=== PATIENT | female | born 1990 | race Caucasian/White ===

== ENCOUNTER 2016-10-11 06:16 | Outpatient (CLI) | payer BC ==
[~2016-10-11] VITALS: Ht 157.5 cm; Wt 66.2 kg
[2016-10-11] MEDS ORDERED: PNV91TAB3 PO (10:30)
[2016-10-12] MEDS ORDERED: SCOP1PAT TD (07:30)
[2016-10-12] MEDS ORDERED: HYDR-3812 PO (08:22)
[2016-10-12] MEDS ORDERED: IBUP-1773 PO (08:22)
[2016-10-12] MEDS ORDERED: Methylergonovine Maleate PO (08:22)
== END 2016-10-11 10:37 ==
LOC: PREOP 06:16
PROVIDERS: ATTEND Obstetrics & Gynecology
DX: Z01.818 Encounter for other preprocedural examination (principal); O02.1 Missed abortion

== ENCOUNTER 2016-10-12 06:22 | Day surgery (SDC) | payer BC ==
[~2016-10-12] VITALS: Ht 157.5 cm; Wt 66.2 kg
[~2016-10-12 06:22] MED LIST: PNV91TAB3 PO
--- OUTSIDE RECORDS SUMMARY | 2016-10-12 06:25 | XMS REPORT | Continuity of Care Document ---
Author Author [facility] Organization [facility] Address Unknown Phone Unavailable Care Team Providers Care Centralized Traffic Control Operator Name Role Phone DEISY FRANCO DO PCP Insurance Providers Payer Name Policy Number Subscriber Name Relationship [facility] [id number] Keshia Becker 17 Self / Same As Patient Advance Directives Directive Response Recorded Date/Time Advance Directives No 10/11/16 10:25am Resuscitation Status Full Code 10/11/16 10:25am Problems No problem information available. Medications Current Home Medications Medication Dose Units Route Directions Days/Qty Instructions Start Date Pnv95/Ferrous Fumarate/Fa 1 Each 1 Each Oral Daily 10/11/16 Social History Social History Problem Response Recorded Date/Time Alcohol Use Denies Use 10/11/2016 10:25am Recreational Drug Use No 10/11/2016 10:25am Recent Foreign Travel No 10/11/2016 10:27am Recent Infectious Disease Exposure No 10/11/2016 10:27am Smoking Status Never a Smoker 10/11/2016 10:25am Recent Hopitalizations No 10/11/2016 10:25am Query Response Start Date Stop Date Smoking Status Never a Smoker Hospital Discharge Instructions No hospital discharge instructions. Plan of Care Discharge Date 10/11/16 10:37am Prescriptions See Medication Section Functional Status No functional status results. Allergies, Adverse Reactions, Alerts Allergen Type Severity Reaction Status Last Updated Sulfa (Sulfonamide Antibiotics) ([id number]) Allergy Unknown Active Immunizations No immunization records. Vital Signs Acute Vital Signs Vital Response Date/Time Height (Feet) 5 feet 10/11/2016 10:25am Height (Inches) 2.00 inches 10/11/2016 10:25am Height (Calculated Centimeters) 157.861649 cm 10/11/2016 10:25am Weight (Pounds) 146 pounds 10/11/2016 10:25am Weight (Ounces) 0.0 oz 10/11/2016 10:25am Weight (Calculated Grams) 59756.49 gm 10/11/2016 10:25am Weight (Calculated Kilograms) 66.077586 kilograms 10/11/2016 10:25am Calculated BMI 26.7 10/11/2016 10:25am Results No known relevant diagnostic tests, laboratory data and/or discharge summary. Procedures No known history of procedures. Encounters Encounter Location Arrival/Admit Date Discharge/Depart Date Attending Provider Departed Clinic [facility] 10/11/16 6:16am 10/11/16 10: 37am JONES PAPPAS DO
--- OUTSIDE RECORDS SUMMARY | 2016-10-12 06:25 | XMS REPORT | Continuity of Care Document ---
Author Author [facility] Organization [facility] Address Unknown Phone Unavailable Care Team Providers Care Engraver [employer] Name Role Phone DEISY FRANCO DO PCP Insurance Providers Payer Name Policy Number Subscriber Name Relationship [facility] [id number] Keshia Becker 17 Self / Same As [...] Reaction Status Last Updated Sulfa (Sulfonamide Antibiotics) ([id number]) Allergy Unknown Active Immunizations No immunization records. Vital Signs Acute Vital Signs Vital Response Date/Time Height (Feet) 5 feet 10/11/2016 10:25am Height (Inches) 2.00 inches 10/11/2016 10:25am Height (Calculated Centimeters) 157.891913 cm 10/11/2016 10:25am Weight (Pounds) 146 pounds 10/11/2016 10:25am Weight (Ounces) 0.0 oz 10/11/2016 10:25am Weight (Calculated Grams) 74289.49 gm 10/11/2016 10:25am Weight (Calculated Kilograms) 66.277582 kilograms 10/11/2016 10:25am Calculated BMI 26.7 10/11/2016 10:25am Results No known relevant diagnostic tests, laboratory data and/or discharge summary. Procedures No known history of procedures. Encounters Encounter Location Arrival/Admit Date Discharge/Depart Date Attending Provider Departed Clinic [facility] 10/11/16 6:16am 10/11/16 10: 37am JONES PAPPAS DO
[2016-10-12 06:40] VITALS: BP 130/76
[2016-10-12] MEDS ORDERED: ceFAZolin 1,000 MG (ANCEF) VIAL ONE (06:46)
[2016-10-12] MEDS ORDERED: ONDANSETRON 4 MG/2 ML (SDV) Z0FRAN ONE ×2 (06:46→07:09)
[2016-10-12] MEDS ORDERED: NS (IVPB) 50 ML ONE (06:47)
[2016-10-12] MEDS ORDERED: FAMOTIDINE 20MG/2ML IV (PEPCID) ONE (06:47)
[2016-10-12] MEDS ORDERED: metroNIDAZOLE 500MG/100ML IVPB 100 ML ONE (06:47)
[2016-10-12] MEDS: LACTATED RINGERS 1,000 ML IV PRN ×2 (06:57→09:15)
[2016-10-12] MEDS ORDERED: ONDANSETRON 4 MG/2 ML (SDV) Z0FRAN IV ONE (07:00)
[2016-10-12] MEDS ORDERED: ceFAZolin 1 GM/NS 50 ML IVPB IV ONE ×2 (07:00)
[2016-10-12] MEDS ORDERED: metroNIDAZOLE 500 MG/100 ML IVPB (PRE-MIX) IV ONE (07:00)
[2016-10-12] MEDS ORDERED: FAMOTIDINE 20MG/2ML IV (PEPCID) IV ONE (07:00)
[2016-10-12] MEDS ORDERED: proPOfol 200 MG/20 ML (DIPRIVAN) VIAL IV ONE (07:09)
[2016-10-12] MEDS ORDERED: fentaNYL INJECTION 100 MCG/2 ML AMP ONE (07:09)
[2016-10-12] MEDS ORDERED: LACTATED RINGERS 1,000 ML IV ONE ×2 (07:09→08:05)
[2016-10-12] MEDS ORDERED: MIDAZOLAM 2 MG/2 ML (VERSED) VIAL ONE (07:09)
[2016-10-12] MEDS ORDERED: LIDOCAINE PF 2% 10 ML (XYLOCAINE) AMP ONE (07:09)
[2016-10-12] MEDS ORDERED: DEXAMETHASONE PF 10 MG/ML (DECADRON) VIAL ONE (07:12)
[2016-10-12] MEDS ORDERED: SEVOFLURANE (ULTANE) 15 ML INHAL SOLN ONE ×2 (07:12→08:14)
[2016-10-12] MEDS ORDERED: SCOP1PAT TD (07:30)
[2016-10-12] MEDS ORDERED: D5 LR IV SOLUTION 1,000 ML IV SCH (08:16)
--- NOTE | 2016-10-12 08:21 | Operative Report ---
Operative Report Date of Procedure/Surgery Oct 12, 2016 Post-Operative Diagnosis missed ab at 9 weeks Procedure Performed Name of Procedure: suction dilation and curettage Description of Procedure Anesthesia Type: General Estimated blood loss (mL): 300 Specimen(s) collected products of conception Indications No hearttones or growth at 8-9 weeks (LMP 10 weeks ago). Probable midgut herniation suggesting likely triploidy. Procedure with informed consent the patient was taken to the operating room where general anesthetic was found to be adequate. The bladder was drained of clear yellow urine with a straight catheter. There is approximately 400 mL of urine. A weighted speculum was placed in the vagina and the cervix was grasped with a tenaculum. The cervix is not dilated. There is no bleeding. I gently dilated Vega dilators to allow insertion of a 9 suction curet. I then did a gentle curet until products of conception removed. I then inserted a sharp curet to ensure removal of all tissue and did a gentle curettage until a gritty texture was felt and the uterine cry was heard. And followed up with one more suction to remove any additional blood. There was minimal bleeding. The tenaculum was removed from the anterior cervix and there was no bleeding from the tenaculum puncture sites. The patient was awakened and taken to the recovery room in a stable condition She went and laparotomy sponges were correct 2. Allergies and Home Medications Allergies Coded Allergies: Sulfa (Sulfonamide Antibiotics) (Verified Allergy, Unknown, 10/11/16) Home Medications Pnv95/Ferrous Fumarate/FA 1 Each Tablet 1 EACH PO DAILY (Reported) Scopolamine 1 Each Patch.td72 1 EACH TD (Reported) JONES PAPPAS DO Oct 12, 2016 08:21
[2016-10-12] MEDS ORDERED: Methylergonovine Maleate PO (08:22)
[2016-10-12] MEDS ORDERED: IBUP-1773 PO (08:22)
[2016-10-12] MEDS ORDERED: HYDR-3812 PO (08:22)
--- NOTE | 2016-10-12 08:23 | Discharge Inst-Women's Service ---
Discharge Inst-Women's Serv Depart Medication/Instructions New, Converted or Re-Newed RX: RX on Chart Instructions expect some vaginal bleeding or spotting up to 2 weeks. If bleeding greater than 1 pad per hour x 2 hours, please contact me or the physician medication technician. Final Diagnosis missed ab Consults/Follow Up Additional Follow Up: Yes (2 weeks) Activity Activity: Activity as Tolerated Driving Instructions: No Driving for 24 Hours NO SMOKING: NO SMOKING Nothing Inside Vagina: No Douching, No [place], No Tampons Symptoms to Report to : Swelling Increased, Bleeding Excessive, Fever Over 101 Degrees F, Vaginal Bleeding Increase, Cramps in Feet or Legs, Lightheadedness, Vaginal Discharge JONES Posadas DO Oct 12, 2016 08:23
[2016-10-12] MEDS ORDERED: KETOROLAC 30 MG/ML VIAL ONE (08:25)
[2016-10-12] MEDS ORDERED: diphenhydrAMINE 50 MG/ML INJ (BENADRYL) ONE (08:25)
--- NOTE | 2016-10-12 08:26 | Progress Note-Pre Operative ---
Pre-Operative Progress Note H&P Reviewed Preop note was done and signed prior to surgery (at 0730) but did not get saved. this is a duplicate The H&P was reviewed, patient examined and no changes noted. Date H&P Reviewed: Oct 12, 2016 Time H&P Reviewed: 07:30 Pre-Operative Diagnosis: Missed JONES Batista DO Oct 12, 2016 08:26
[2016-10-12] MEDS ORDERED: MEPERIDINE (DEMEROL) INJ 50 MG/ML IVP PRN (08:30)
[2016-10-12] MEDS ORDERED: ONDANSETRON 4 MG/2 ML (SDV) Z0FRAN IVP PRN (08:30)
[2016-10-12] MEDS ORDERED: PROMETHAZINE INJ 25 MG/ML (PHENERGAN) AMP IVP PRN (08:30)
[2016-10-12] MEDS ORDERED: HYDROcodone/APAP 5 MG/325 MG (LORTAB) TAB PO PRN (08:30)
[2016-10-12] MEDS ORDERED: morphine INJ 10 MG/ML 1ML (SYR OR VIAL) IVP PRN (08:30)
[2016-10-12] MEDS ORDERED: METHYLERGONOVINE 0.2 MG (MEHTERGINE) TAB PO SCH (09:00)
[2016-10-12 09:10] VITALS: BP 113/68
[2016-10-12 09:40] VITALS: BP 107/65
[2016-10-12 10:10] VITALS: BP 109/67
[2016-10-12] MEDS ORDERED: IBUPROFEN 600 MG (MOTRIN) TAB PO SCH (12:00)
== END 2016-10-12 10:40 | disposition home or self-care (01) ==
LOC: SDC 06:22
PROVIDERS: ATTEND Obstetrics & Gynecology
DX: O02.1 Missed abortion (principal)
CPT/HCPCS: 87081; 88305; 94664

== ENCOUNTER → 2017-04-20 | Outpatient (CLI) | payer BC ==
[~2017-04-20] MED LIST changes: +HYDR-3812 PO; +IBUP-1773 PO; +Methylergonovine Maleate PO; +SCOP1PAT TD
== END ==
LOC: LAB 10:26
PROVIDERS: ATTEND Obstetrics & Gynecology
DX: Z33.1 Pregnant state, incidental (principal)
CPT/HCPCS: 36415; 84702

== ENCOUNTER → 2017-08-07 | Outpatient (CLI) | payer BC ==
--- NOTE | 2017-08-07 18:21 | Diagnostic Imaging Report ---
INDICATION: anatomy survey. TECHNIQUE: Multiple real-time grayscale images were obtained over the gravid uterus. COMPARISON: None. FINDINGS: There is a marginal placenta with the inferior tip of the placenta located within 2 cm of the internal cervical os. The placenta is posteriorly located, and there is no evidence of abruption. There is a single live intrauterine with a heart rate of 143 beats per minute. The fetus is in variable lie throughout the examination. biometric data is supplied below. anatomy survey was performed, and the following structures were visualized and normal: Cisterna magna, cerebellum, cerebral ventricles, stomach, kidneys, urinary bladder, umbilical cord insertion, and four-chamber heart. Biometrical measurements are as follows: Biparietal 4.64 cm, age 20 weeks 1 days. Head circumference 17.64 cm, age 20 weeks 1 days. Abdominal circumference 16.18 cm, age 21 weeks 2 days. Femur length 3.26 cm, age 20 weeks 2 days. Sonographic estimate age: 20 weeks 4 days. Sonographic estimated date of delivery: 12/21/2017. Estimated Weight: 370 gm (+/- 54 gm). LMP percentile: 95%. heart rate: 143 beats per minute. number: 1 of 1. IMPRESSION: 1. Single live intrauterine has a normal anatomy survey with the exception of suboptimal visualization of the spine due to positioning. Advise followup examination for better assessment of the spine. 2. Marginal placenta has tip within 2 cm of the internal cervical os. Attention on followup ultrasound is recommended. Dictated by: Dictated on workstation # [id number]
== END ==
LOC: RAD 17:41
PROVIDERS: ATTEND Obstetrics & Gynecology
DX: Z34.92 Encounter for supervision of normal pregnancy, unspecified, second trimester (principal); Z3A.20 20 weeks gestation of pregnancy
CPT/HCPCS: 76805

== ENCOUNTER → 2020-03-11 | Outpatient (CLI) | payer BC ==
[~2020-03-11] MED LIST changes: +ACHD5005 PO; +CATHETER FLUSH 10 ML SYR IV PRN; +DOCU100C37 PO; +HOLD METFORMIN - RECEIVED CONTRAST 20 ML VIAL IV SCH; -HYDR-3812 PO; +IBUP-844 PO; +IOHEXOL 350 MG/ML 100 ML (OMNIPAQUE 350) VIAL IV ONE; +NS 100 ML (IVPB) BAG IV ONE; -SCOP1PAT TD; +SCOP1PAT11 TD
[2020-03-11 13:09] LABS: ALBUMIN 4.3 GM/DL (3.2-4.5)
[2020-03-11 13:10] LABS: CHLORIDE 108 MMOL/L (98-107); POTASSIUM 3.7 MMOL/L (3.6-5.0); SODIUM 140 MMOL/L (135-145)
[2020-03-11 13:11] LABS: CALCIUM 8.8 MG/DL (8.5-10.1)
[2020-03-11 13:12] LABS: GLUCOSE 87 MG/DL (70-105); TOTAL PROTEIN 7.3 GM/DL (6.4-8.2)
[2020-03-11 13:13] LABS: CARBON DIOXIDE 24 MMOL/L (21-32)
[2020-03-11 13:14] LABS: BILIRUBIN,TOTAL 0.9 MG/DL (0.1-1.0)
[2020-03-11 13:15] LABS: ALKALINE PHOSPHATASE 42 U/L (40-136)
[2020-03-11 13:16] LABS: CREATININE SERUM 0.88 MG/DL (0.60-1.30); GFR ESTIMATED > 60
[2020-03-11 13:17] LABS: BUN/CREATININE RATIO 14
[2020-03-11 13:18] LABS: ALANINE AMINOTRANSFERASE 23 U/L (0-55)
[2020-03-11 13:44] LABS: BASOPHILS % (AUTO) 0 % (0-10); EOSINOPHILS # (AUTO) 0.1 10^3/uL (0.0-0.3); EOSINOPHILS % (AUTO) 1 % (0-10); HEMATOCRIT 39 % (35-52); HEMOGLOBIN 13.2 G/DL (11.5-16.0); LYMPHOCYTES # (AUTO) 2.8 X 10^3 (1.0-4.0); LYMPHOCYTES % (AUTO) 36 % (12-44); MEAN CORPUSCULAR HEMOGLOBIN 29 PG (25-34); MEAN CORPUSCULAR HGB CONC 34 G/DL (32-36); MEAN CORPUSCULAR VOLUME 86 FL (80-99); MEAN PLATELET VOLUME 11.1 FL (7.4-10.4); MONOCYTES # (AUTO) 0.6 X 10^3 (0.0-1.0); MONOCYTES % (AUTO) 7 % (0-12); NEUTROPHILS # (AUTO) 4.3 X 10^3 (1.8-7.8); NEUTROPHILS % (AUTO) 55 % (42-75); PLATELET COUNT 153 10^3/uL (130-400); RED CELL DISTRIBUTION WIDTH 12.6 % (10.0-14.5); WHITE BLOOD COUNT 7.7 10^3/uL (4.3-11.0)
--- NOTE | 2020-03-14 08:50 | Diagnostic Imaging Report ---
PROCEDURE: CT head with and without contrast. TECHNIQUE: Multiple contiguous axial images were obtained through the brain before and after the administration of intravenous contrast. Auto Exposure Controls were utilized during the CT exam to meet ALARA standards for radiation dose reduction. INDICATION: Migraine headaches. Comparison is made with prior head CT from 04/02/2011. The ventricles and sulci are within normal limits. No sulcal effacement or midline shift is identified. No acute intra-axial or extra-axial hemorrhage is detected. No abnormal enhancement following contrast administration is identified. Cisterns are patent. Visualized paranasal sinuses are clear. IMPRESSION: Unremarkable pre and postcontrast CT of the brain. Dictated by: Dictated on workstation # [id number]
== END ==
LOC: RAD 12:23
PROVIDERS: ATTEND Internal Medicine
DX: I67.1 Cerebral aneurysm, nonruptured (principal); D64.9 Anemia, unspecified; R53.83 Other fatigue
CPT/HCPCS: 36415; 70470; 80053; 82728; 83540; 84443; 85025

== ENCOUNTER → 2021-01-19 | Outpatient (CLI) | payer BC ==
[~2021-01-19] MED LIST changes: -CATHETER FLUSH 10 ML SYR IV PRN; -HOLD METFORMIN - RECEIVED CONTRAST 20 ML VIAL IV SCH; -IOHEXOL 350 MG/ML 100 ML (OMNIPAQUE 350) VIAL IV ONE; -NS 100 ML (IVPB) BAG IV ONE
--- NOTE | 2021-01-19 16:01 | Diagnostic Imaging Report ---
INDICATION: Anatomy scan. TECHNIQUE: Multiple real-time grayscale images were obtained over the gravid uterus. COMPARISON: None. FINDINGS: There is a single live fetus in a variable presentation. heart rate was recorded at 147 BPM. Placenta is anterior. The amniotic fluid index is 8.9 cm. Cervical length is 5.6 cm. survey demonstrates kidneys, bladder, and stomach to be unremarkable. brain is unremarkable. There is a four-chamber heart. There is a three-vessel cord with normal insertion. spine is unremarkable. Biometrical measurements are as follows: Biparietal 4.39 cm, age 19 weeks 2 days. Head circumference 16.57 cm, age 19 weeks 2 days. Abdominal circumference 14.07 cm, age 19 weeks 4 days. Femur length 2.89 cm, age 19 weeks 0 days. Sonographic estimate age: 19 weeks 2 days. Sonographic estimated date of delivery: 06/13/2021. Estimated Weight: 279 gm (+/- 41 gm). LMP percentile: 49%. heart rate: 147 beats per minute. number: 1 of 1. IMPRESSION: Single live IUP at 19 weeks 2 days gestational age. Estimated date of confinement sonographically is 06/13/2021. Dictated by: Dictated on workstation # [id number]
== END ==
LOC: RAD 11:18
PROVIDERS: ATTEND Obstetrics & Gynecology
DX: Z34.02 Encounter for supervision of normal first pregnancy, second trimester (principal); Z3A.19 19 weeks gestation of pregnancy
CPT/HCPCS: 76805

== ENCOUNTER 2021-05-12 04:40 | Inpatient (IN) | payer BC ==
[~2021-05-12] VITALS: Ht 160 cm; Wt 93.3 kg
[2021-05-12] VITALS (12 sets, daily range): BP systolic 101–144; BP diastolic 49–81
[2021-05-12] MEDS ORDERED: FAMOTIDINE 20MG/2ML IV (PEPCID) IV ONE (05:00)
[2021-05-12] MEDS ORDERED: CATHETER FLUSH 10 ML SYR IV PRN (05:00)
[2021-05-12] MEDS ORDERED: LACTATED RINGERS 1,000 ML IV PRN (05:00)
[2021-05-12] MEDS ORDERED: CITRIC ACID/SOB CIT (BICITRA) 30 ML UDC PO ONE (05:00)
[2021-05-12] MEDS ORDERED: METOCLOPRAMIDE INJ 10 MG/2 ML (REGLAN) IV ONE (05:00)
[2021-05-12] MEDS: LACTATED RINGERS 1,000 ML IV PRN ×2 (05:15→06:00)
[2021-05-12] MEDS ORDERED: ceFAZolin 2 GM IV Premixed 50 ML ONE (05:24)
[2021-05-12 05:28] LABS: BASOPHILS # (AUTO) 0.1 10^3/uL (0.0-0.1); BASOPHILS % (AUTO) 0 % (0-10); EOSINOPHILS % (AUTO) 1 % (0-10); NEUTROPHILS % (AUTO) 68 % (42-75)
[2021-05-12 05:30] LABS: EOSINOPHILS # (AUTO) 0.1 10^3/uL (0.0-0.3); HEMATOCRIT 33 % (35-52); HEMOGLOBIN 10.8 g/dL (11.5-16.0); LYMPHOCYTES # (AUTO) 2.7 10^3/uL (1.0-4.0); LYMPHOCYTES % (AUTO) 21 % (12-44); MEAN CORPUSCULAR HEMOGLOBIN 28 pg (25-34); MEAN CORPUSCULAR HGB CONC 33 g/dL (32-36); MEAN CORPUSCULAR VOLUME 85 fL (80-99); MEAN PLATELET VOLUME 11.4 fL (9.0-12.2); MONOCYTES % (AUTO) 8 % (0-12); NEUTROPHILS # (AUTO) 8.8 10^3/uL (1.8-7.8); PLATELET COUNT 137 10^3/uL (130-400)
[2021-05-12] MEDS ORDERED: OXYTOCIN PRE-MIX DRIP 500 ML IV SCH (05:30)
[2021-05-12] MEDS ORDERED: NALOXONE 0.4 MG/ML 1 ML (NARCAN) VIAL IV PRN ×2 (05:30→07:45)
[2021-05-12] MEDS ORDERED: TETANUS,DIPTH,PERTUSS P/F (BOOSTRIX) 0.5 ML VIAL IM SCH (05:30)
[2021-05-12] MEDS ORDERED: ONDANSETRON 4 MG/2 ML (SDV) Z0FRAN IVP PRN (05:30)
[2021-05-12] MEDS ORDERED: ceFAZolin 2 GM IV Premixed 50 ML IV ONE (05:30)
[2021-05-12] MEDS ORDERED: MEASLES,MUMPS,RUBELLA 1 EA INJ SC SCH (05:30)
--- NOTE | 2021-05-12 05:30 | History & Physical-OB ---
OB - Chief Complaint & HPI Date/Time Date of Admission: Date of Admission: May 12, 2021 at 05:05 Date seen by a Provider: May 12, 2021 Time Seen by a Provider: 05:15 Chief Complaint/History OB-Reason for Admission/Chief: Rupture of Membranes Hx : 4 Hx Para: 1 Expected Date of Delivery: Jun 14, 2021 Gestational Age in Weeks: 35 Gestational Age in Days: 2 Indication for : desires repeat Other reason for admission: Patient admitted with PROM, PTL with history of previous . Admission Nurse Assessment Rev: Yes History of Labs O pos Antibody neg RI RPR NR HBsAg NR HIV NR GC neg GBS pending Allergies and Home Medications Allergies Coded Allergies: Sulfa (Sulfonamide Antibiotics) (Verified Allergy, Unknown, 10/11/16) Patient Home Medication List Home Medication List Reviewed: Yes Docusate Sodium (Docusate Sodium) 100 Mg Capsule, 100 MG PO BID PRN for CONSTIPATION-1ST LINE Prescribed by: AYLEEN CANDELARIO on 12/10/17 1735 Hydrocodone Bit/Acetaminophen (Lortab 5 Mg Tablet) 1 Tab Tab, 1-2 TAB PO Q4H PRN for PAIN-MODERATE Prescribed by: AYLEEN CANDELARIO on 12/10/17 1735 Ibuprofen (Ibu) 600 Mg Tablet, 600 MG PO Q6H Prescribed by: AYLEEN CANDELARIO on 12/10/17 1735 Pnv95/Ferrous Fumarate/FA ( Caplet) 1 Each Tablet, 1 EACH PO DAILY, (Reported) Entered as Reported by: JOHN JACK on 10/11/16 1030 OB - History Hx of Present Care: Yes Ultrasounds: Normal mid trimester US Obstetrical Complications: None Medical Complications: None Delivery History Hx Blood Disorders: No Adverse Rxn to Tranfusion: No (n/a) Patient Past Medical History n/a Immunizations Hepatitis A: No Hepatitis B: Yes Date of Influenza Vaccine: May 18, 2016 OB - Admission Exam Physical Exam HEENT: NCAT Heart: Rhythm Normal Lungs: Clear Abdomen: Gravid Extremities: Normal Reflexes: Normal Heart Rate: 130's Accelerations: Accelerations Present Decelerations: No Decelerations Short Term Variability: Present Warehouse Team Member Variability: Average (6-25) Contractions on Admission: 6-10 Minutes Apart Intensity: Mild OB - Assessment/Plan/Diagnosis Assessment Assessment: section Admission Dx 30 yo @ 35.2 PROM Previous GBS unknown- pending Admission Status: Inpatient Order (span 2 midnights) Reason for Inpatient Admission: Repeat Plan Plan: Section AYLEEN CANDELARIO DO May 12, 2021 05:30
--- NOTE | 2021-05-12 05:32 | Discharge Inst-Women's Service ---
Discharge Inst-Women's Serv Depart Medication/Instructions New, Converted or Re-Newed RX: RX on Chart Final Diagnosis POD 2 RLTCS Problems Reviewed?: Yes Consults/Follow Up Additional Follow Up: Yes Orders/Referrals Dr. Barrios in 7-10 days and in 6 weeks Activity Activity: Activity as Tolerated Driving Instructions: No Driving for 1 Week NO SMOKING: NO SMOKING Nothing Inside Vagina: No Douching, No [place], No Tampons Diet Discharge Diet: No Restrictions Symptoms to Report to : Bleeding Excessive, Pain Increased, Fever Over 101 Degrees F, Vaginal Bleeding Increase, Questions/Concerns For Any Problems or Questions: Contact Your Physician Skin/Wound Care Infection Signs and Symptoms: Increased Redness, Foul Odor of Wound, Increased Drainage, Skin Itchy or Has a Rash, Increased Swelling, Temperature Above 101 F Operative Area Clean and Dry: Keep Incision Clean/Dry Stitches/Jose Carlos/Dermabond: Dermabond, Care of Stitches Bathing Instructions: AYLEEN López DO May 12, 2021 05:32
[2021-05-12] MEDS ORDERED: ACHD5005 PO (05:33)
[2021-05-12] MEDS ORDERED: DOCU-239 PO (05:33)
[2021-05-12] MEDS ORDERED: IBUP-844 PO (05:33)
[2021-05-12] MEDS ORDERED: fentaNYL INJ 100 MCG/2 ML AMP ONE (05:33)
[2021-05-12 05:41] LABS: SMEAR SCAN COMMENT YES
[2021-05-12] MEDS ORDERED: ONDANSETRON 4 MG/2 ML (SDV) Z0FRAN ONE ×2 (05:55→06:39)
[2021-05-12] MEDS ORDERED: CATHETER FLUSH 10 ML SYR IV SCH (06:00)
[2021-05-12] MEDS ORDERED: OXYTOCIN PRE-MIX DRIP 500 ML IV ONE (06:01)
[2021-05-12] MEDS ORDERED: ROPIVACAINE 5MG/ML 30ML VIAL ONE (06:39)
[2021-05-12] MEDS ORDERED: ONDANSETRON 4 MG/2 ML (SDV) Z0FRAN IV PRN (07:45)
[2021-05-12] MEDS ORDERED: diphenhydrAMINE 50 MG/ML INJ (BENADRYL) IV PRN (07:45)
[2021-05-12] MEDS: DOCUSATE SODIUM 100 MG (COLACE) CAP PO SCH ×2 (08:21→21:26)
[2021-05-12] MEDS: KETOROLAC 30 MG/ML VIAL IV SCH ×3 (08:21→20:15)
--- NOTE | 2021-05-12 08:23 | OPERATIVE REPORT ---
DATE OF SERVICE: PREOPERATIVE DIAGNOSES: 1. A 30-year-old G4, P1 at 35 weeks and 2 days gestation. 2. Spontaneous rupture of membranes. 3. Dhruv breech presentation. POSTOPERATIVE DIAGNOSES: 1. A 30-year-old G4, P1 at 35 weeks and 2 days gestation. 2. Spontaneous rupture of membranes. 3. Dhruv breech presentation. PROCEDURE: Repeat low transverse section. SURGEON: Don Candelario DO INCOME TAX AUDITOR: Chelsea Varma DNP, was necessary for manipulation and retraction throughout the procedure. ANESTHESIA: Spinal. ESTIMATED BLOOD LOSS: 550 mL. URINE OUTPUT: 1000 mL. FLUIDS: 1100 mL lactated Ringer's solution. FINDINGS: A live female infant weighing 7 pounds 3 ounces, Apgars of 8 and 8 and 9 at 10 minutes. Grossly normal appearing uterus, bilateral fallopian tubes and ovaries. SPECIMEN SENT: Placenta. INDICATIONS FOR PROCEDURE: A 30-year-old female was a patient who presented with spontaneous rupture of membranes at 35 weeks, also in the breech presentation and a history of a prior . The patient already planned for delivery at 39 weeks via repeat . Therefore, we expedited and determined that delivery was the safest route at this point, due to 35 weeks ruptured membranes and previous . Risks of the procedure had been discussed with the patient in detail including risk of bleeding, infection, damaging surrounding structures including, but not limited to bowel, bladder, ureter, kidneys, possible need for operation, postoperative complications that may occur, risk from anesthesia, recovery timeframe, hospitalization stay and even . After everything was discussed with the patient in detail, consent was obtained in the preoperative area, the patient was taken to the operating room. OPERATIVE REPORT IN DETAIL: Once in the operating room, spinal analgesia was found to be adequate. She was placed in supine position with a leftward tilt, prepped and draped in normal sterile fashion. A timeout was performed, and anesthesia was tested. I then make a Pfannenstiel skin incision through the previously existing scar using knife and carried down to underlying fascia using Bovie cautery. The fascial incision extended laterally using Bovie cautery. Superior aspect of the fascial incision was then grasped with Scottie clamps, tented up and dissected off the underlying rectus muscles. The inferior aspect of fascial incision was then grasped with Scottie clamps, tented up and dissected off the underlying rectus muscles. Rectus muscles were then dissected down the midline, which exposed the peritoneum, which I entered bluntly and extended using blunt traction. I then placed an Kishan ring retractor within the peritoneal incision, which offers excellent lateral sidewall retraction. I identified the lower uterine segment, which was found to be thinned out and I make a low transverse incision to the vesicouterine peritoneum and bluntly dissected this off the lower uterine segment, creating a bladder flap. I then proceeded with my myotomy until membranes were visualized, at which point I extended the uterine incision laterally and superiorly using bandage scissors. The infant was found in the dhruv breech presentation. The 's buttocks were elevated up the incision where delivered through the incision all the way up into the upper torso where the legs allowed to be delivered. I then placed the infant in the downward facing position, sweeping the arms across the chest to deliver the arms and then with lifting the body and flexing the head through the incision. The head was delivered through the incision. The infant was then placed on the operative field where the cord was doubly clamped and cut. The nares and oropharynx were bulb suctioned. was handed off to Dr. Camejo, who was present for delivery. Cord blood was collected, 3-vessel cord with intact placenta was delivered spontaneously thereafter. IV Pitocin is initiated to facilitate uterine contraction. Uterine fundus confirmed by manual massage. The uterus was then exteriorized and cleared of all endometrial clots and debris. I then proceeded with closing the uterine incision using 0 Vicryl suture in running locked fashion. Second layer of imbricating 0 Monocryl was placed. Excellent hemostasis was noted after doing this. I then placed the uterus back in the pelvis and copiously irrigate the pelvis using normal saline. Once again, there was no active bleeding noted from any of my dissection planes. I placed Interceed antiadhesive over my low transverse incision. I removed the Kishan ring retractor and proceeded with closing the peritoneum using 3-0 Vicryl suture in running fashion. The rectus muscle was reapproximated using 3-0 Vicryl suture in interrupted fashion. The fascia was reapproximated using 0 Vicryl suture in running fashion. Subcutaneous tissue was reapproximated using 3-0 plain interrupted subcutaneous stitch and skin reapproximated using 4-0 Monocryl running subcuticular. Dermabond was applied to incision and sterile dressing with adhesive white tape. The patient tolerated the procedure well and was taken to recovery area in stable condition. Lap and sponge count was correct at the end of the procedure. Instrument counts correct as well. Two grams of Ancef were given preoperatively for infection prophylaxis. Job ID: [id number] DocumentID: [id number] Dictated Date: 05/12/2021 07:06:33 Senior Recruiter Date: 05/12/2021 08:22:42 Dictated By: DON CANDELARIO DO
[2021-05-12] MEDS: HYDROcodone/APAP 5 MG/325 MG (LORTAB) TAB PO PRN ×3 (10:53→23:08)
[2021-05-13] MEDS: KETOROLAC 30 MG/ML VIAL IV SCH (02:29)
[2021-05-13 03:00] VITALS: BP 119/71
[2021-05-13 06:06] LABS: BASOPHILS # (AUTO) 0.1 10^3/uL (0.0-0.1); BASOPHILS % (AUTO) 1 % (0-10)
[2021-05-13 06:08] LABS: EOSINOPHILS # (AUTO) 0.2 10^3/uL (0.0-0.3); EOSINOPHILS % (AUTO) 1 % (0-10); HEMATOCRIT 36 % (35-52); HEMOGLOBIN 11.6 g/dL (11.5-16.0); LYMPHOCYTES # (AUTO) 2.7 10^3/uL (1.0-4.0); LYMPHOCYTES % (AUTO) 20 % (12-44); MEAN CORPUSCULAR HEMOGLOBIN 28 pg (25-34); MEAN CORPUSCULAR HGB CONC 32 g/dL (32-36); MEAN CORPUSCULAR VOLUME 86 fL (80-99); MEAN PLATELET VOLUME 11.7 fL (9.0-12.2); MONOCYTES # (AUTO) 0.9 10^3/uL (0.0-1.0); MONOCYTES % (AUTO) 6 % (0-12); NEUTROPHILS # (AUTO) 9.8 10^3/uL (1.8-7.8); NEUTROPHILS % (AUTO) 71 % (42-75); PLATELET COUNT 135 10^3/uL (130-400); WHITE BLOOD COUNT 13.9 10^3/uL (4.3-11.0)
[2021-05-13 06:15] LABS: SMEAR SCAN COMMENT YES
[2021-05-13] MEDS: HYDROcodone/APAP 5 MG/325 MG (LORTAB) TAB PO PRN ×3 (06:31→22:24)
[2021-05-13] MEDS: DOCUSATE SODIUM 100 MG (COLACE) CAP PO SCH ×2 (09:28→22:24)
[2021-05-13] MEDS: IBUPROFEN 600 MG (MOTRIN) TAB PO SCH ×3 (09:28→22:24)
[2021-05-13 09:29] VITALS: BP 144/70
--- NOTE | 2021-05-13 10:02 | Postpartum Progress Note ---
Note Note Day # 1 Subjective: Patient is without complaints. Ambulating, voiding. Tolerating a regular diet without nausea or vomiting. Normal lochia. Pain is well controlled with oral pain medications Objective: Physical Exam: General - Alert and oriented, no apparent distress Abdomen - Soft, appropriately tender to palpation, non-distended, fundus firm at umbilicus Extremities - no edema, negative Eileen's bilaterally Incision- c/d/i Assessment: POD 1 RLTCS Plan: Routine care. Encourage breast feeding. Encourage ambulation. Ferrous sulfate supplementation. Plan for discharge tomorrow Vitals - Labs Vital Signs - I&O Vital Signs Date Time Temp Pulse Resp B/P (MAP) Pulse Ox O2 Delivery O2 Flow Rate FiO2 05/13/21 03:00 36.5 77 18 119/71 (87) 99 Room Air 05/12/21 23:09 36.4 77 18 119/62 (81) 100 Room Air 05/12/21 20:17 36.5 77 18 128/67 (87) 99 Room Air 05/12/21 16:42 36.4 77 18 133/62 (85) 98 Room Air 05/12/21 12:25 36.1 70 18 115/57 (76) 97 Room Air I & O 05/13/21 07:00 Intake Total 500 ml Output Total 1500 ml Balance -1000 ml Labs Laboratory Tests 05/13/21 05:57: White Blood Count 13.9H, Red Blood Count 4.22, Hemoglobin 11.6, Hematocrit 36, Mean Corpuscular Volume 86, Mean Corpuscular Hemoglobin 28, Mean Corpuscular Hemoglobin Concent 32, Red Cell Distribution Width 13.2, Platelet Count 135, Mean Platelet Volume 11.7, Immature Granulocyte % (Auto) 1, Neutrophils (%) (Auto) 71, Lymphocytes (%) (Auto) 20, Monocytes (%) (Auto) 6, Eosinophils (%) (Auto) 1, Basophils (%) (Auto) 1, Neutrophils # (Auto) 9.8H, Lymphocytes # (Auto) 2.7, Monocytes # (Auto) 0.9, Eosinophils # (Auto) 0.2, Basophils # (Auto) 0.1, Immature Granulocyte # (Auto) 0.2H, Percent Immature Platelet Fraction 11.5H, Smear Scan YES AYLEEN CANDELARIO DO May 13, 2021 10:02
--- NOTE | 2021-05-13 12:49 | Anesthesia-Regional Post-Op ---
Regional Patient Condition Mental Status: Alert, Oriented x3 Circulation: Same as Pre-Op Headache: Absent Sensation: Full Recovery Motor Block: Absent Post Op Complications Complications None Follow Up Care/Instructions Patient Instructions None needed. Anesthesia/Patient Condition Patient is doing well, no complaints, stable vital signs, no apparent adverse anesthesia problems. No complications reported per nursing. ARPIT COTE CRNA May 13, 2021 12:49
[2021-05-13 17:11] VITALS: BP 127/61
[2021-05-13 22:25] VITALS: BP 119/76
[2021-05-14 06:09] VITALS: BP 128/68
[2021-05-14] MEDS: IBUPROFEN 600 MG (MOTRIN) TAB PO SCH (06:10)
[2021-05-14] MEDS: HYDROcodone/APAP 5 MG/325 MG (LORTAB) TAB PO PRN (06:14)
[2021-05-14] MEDS: DOCUSATE SODIUM 100 MG (COLACE) CAP PO SCH (08:58)
== END 2021-05-14 10:50 | disposition home or self-care (01) | DRG 788 ==
LOC: WSo 04:40 → LDRP 04:41 → WSo 05:05 → LDRP 05:05 → WS 10:08 → LDRP 21:45
PROVIDERS: ADMIT Obstetrics & Gynecology; ATTEND Obstetrics & Gynecology
PROC: 10D00Z1 Extraction of Products of Conception, Low, Open Approach (ICD-10-PCS; principal; 2021-05-12 06:00)
DX: O34.211 Maternal care for low transverse scar from previous cesarean delivery (principal); O42.913 Preterm premature rupture of membranes, unspecified as to length of time between rupture and onset of labor, third trimester; Z3A.35 35 weeks gestation of pregnancy; Z37.0 Single live birth; O32.1XX0 Maternal care for breech presentation, not applicable or unspecified
CPT/HCPCS: 36415; 85025; 85027; 86850; 86900; 86901; 94664; 99212

== ENCOUNTER → 2021-05-31 | Outpatient (CLI) | payer BC ==
[~2021-05-31] MED LIST changes: +DOCU-239 PO; +SCOP1PAT10 TD; -SCOP1PAT11 TD
== END ==
LOC: PREOP 05:56
PROVIDERS: ATTEND Obstetrics & Gynecology
DX: Z01.818 Encounter for other preprocedural examination (principal)